=== PATIENT | female | born 1955 | race Caucasian/White ===

== ENCOUNTER 2019-04-21 11:59 | Outpatient (CLI) | payer BC | END 2019-04-21 12:00 | disposition critical access hospital (66) | LOC: EMS 11:59 | PROVIDERS: ATTEND Surgery | DX: S89.91XA Unspecified injury of right lower leg, initial encounter (principal); W11.XXXA Fall on and from ladder, initial encounter; Y92.008 Other place in unspecified non-institutional (private) residence as the place of occurrence of the external cause | CPT/HCPCS: A0425; A0427 ==

== ENCOUNTER 2019-04-21 12:16 | Emergency (ER) | payer BC ==
[2019-04-21] MEDS ORDERED: HYDROmorphone 1 MG/ML CARPUJECT IVP STA ×4 (12:53→16:28)
--- NOTE | 2019-04-21 12:55 | ED Physician Documentation ---
History of Present Illness - Stated complaint Stated Complaint: 5' FALL - Chief complaint Chief Complaint: General - History obtained from History obtained from: Patient - History of Present Illness Timing: Today (She fell about 5 feet off a ladder onto her right leg. No other injuries. She felt like her leg was briefly deformed. No head or neck injury. Pain is severe.) Review of Systems Ten Systems: 10 systems reviewed and negative Constitutional: reports: Reviewed and negative Cardiac: reports: Reviewed and negative Respiratory: reports: Reviewed and negative PD PAST MEDICAL HISTORY - Past Medical History Past Medical History: Yes Cardiovascular: Hypertension, High cholesterol, Coronary artery disease Endocrine/Autoimmune: HyPOthyroidism Other Past Medical History: Arthritis, - Past Surgical History Past Surgical History: Yes General: Appendectomy Ortho: Other /FOXING PAINTER: Hysterectomy, Oophrectomy - Present Medications Home Medications: Ambulatory Orders Medication Instructions Recorded Confirmed Atenolol [Tenormin] 50 04/21/19 Levothyroxine [Synthroid] 125 04/21/19 Losartan [Cozaar] 100 04/21/19 Pravastatin [Pravachol] 80 04/21/19 Verapamil HCl [Verapamil ER] 120 04/21/19 Zolpidem [Ambien] 10 04/21/19 - Allergies Allergies/Adverse Reactions: Allergies Allergy/AdvReac Type Severity Reaction Status Date / Time No Known Drug Allergies Allergy Verified 04/21/19 12:23 - Social History Does the pt smoke?: Yes Smoking Status: Current some day smoker Does the pt drink ETOH?: No Does the pt have substance abuse?: No - Immunizations Immunizations are current?: Yes PD ED PE NORMAL - Vitals Vital signs reviewed: Yes - General General: Alert and oriented X 3, No acute distress - HEENT HEENT: PERRL, EOMI - Neck Neck: Supple, no meningeal sign, No bony TTP - Cardiac Cardiac: RRR, No murmur - Respiratory Respiratory: No respiratory distress, Clear bilaterally - Abdomen Abdomen: Soft, Non tender - Back Back: No CVA TTP, No spinal TTP - Extremities Extremities: Other (There is a suggestion of a deformity at the tibial plateau, cannot range it at all on the right.) - Neuro Neuro: Alert and oriented X 3, Normal speech Results - Vitals Vitals: Vital Signs - 24 hr 04/21/19 04/21/19 04/21/19 12:23 14:05 15:43 Temperature 36.8 C Heart Rate 76 52 L 51 L Respiratory 17 16 14 Rate Blood Pressure 143/93 H 140/84 H 134/95 H O2 Saturation 94 99 97 Oxygen O2 Source Room air - Rads (name of study) Xr R knee Radiology: EMP read contemporaneously (Comminuted impacted lateral tibial plateau fracture) CT R knee Radiology: EMP read contemporaneously (1. Moderately comminuted and severely impacted fracture lateral tibial plateau with vertically oriented split component extending 10 cm distally (Schatzker type II). 2. Fracture extends into the tibial spines with minimally impacted fracture medial tibial plateau. 3. Large lipohemarthrosis. 4. Suggestion of mild edema in the musculature anterior compartment lower leg. 5. Ill-defined 11 cm subcutaneous hematoma over the anterolateral aspect lower leg.) PD MEDICAL DECISION MAKING - ED course ED course: Case discussed by phone with Dr. Garcia, the on-call orthopedic surgeon at approximately 1:45 PM who recommended a CT for better evaluation for potential surgical planning. `After that he felt she would be best served by going to a higher level of care and was accepted by Dr. Fidel Wooten at [facility] at 3:20 PM and cobras were completed. Departure - Departure Disposition: 02 Transfer Acute Care Hosp Clinical Impression: Fracture of right tibial plateau Qualifiers: Encounter type: initial encounter Fracture type: closed Qualified Code(s): S82.141A - Displaced bicondylar fracture of right tibia, initial encounter for closed fracture Condition: Fair
--- NOTE | 2019-04-21 14:27 | XRAY Report ---
Reason: knee/leg inj Procedure Date: 04/21/2019 Accession Number: [id number] / [id number] Procedure: XR - Knee 4 View RT CPT Code: Final Report FULL RESULT: EXAM: RIGHT KNEE RADIOGRAPHY EXAM DATE: 04/21/2019 01:46 PM. CLINICAL HISTORY: Knee/leg inj. COMPARISON: None. TECHNIQUE: 3 views. FINDINGS: Bones: There is an acute displaced lateral wedge/split fracture with compression of right lateral tibial plateau. The wedge/split extends inferiorly into the proximal right tibial diaphysis. Mild cortical irregularity also seen at medial tibial plateau. Findings favor Schatzker type tibial plateau fracture. (Bicondylar with diaphyseal extension). Joints: A small right knee joint effusion noted. No subluxations. Soft Tissues: Normal. No soft tissue swelling. IMPRESSION: Findings favor Schatzker type right tibial plateau fracture. (Bicondylar with diaphyseal extension). RAD[facility]
--- NOTE | 2019-04-21 14:29 | XRAY Report ---
Reason: knee/leg inj Procedure Date: 04/21/2019 Accession Number: [id number] / [id number] Procedure: XR - Tib/Fib RT CPT Code: Final Report FULL RESULT: EXAM: RIGHT TIBIA/FIBULA RADIOGRAPHY EXAM DATE: 04/21/2019 01:45 PM. CLINICAL HISTORY: Knee/leg inj. COMPARISON: None. TECHNIQUE: 2 views. FINDINGS: Bones: There is an acute displaced lateral wedge/split fracture with compression of right lateral tibial plateau. The wedge/split extends inferiorly into the proximal right tibial diaphysis. Cortical irregularity/fracture at medial tibial plateau as well. Soft Tissues: Normal. No soft tissue swelling. IMPRESSION: An acute displaced lateral wedge/split fracture with compression of right lateral tibial plateau. The wedge/split extends inferiorly into the proximal right tibial diaphysis. ( Described in detail on the radiograph). Findings most consistent with a Schatzker type right tibial fracture. RADIA
--- NOTE | 2019-04-21 15:36 | CT Report ---
Reason: tibial plateu frx Procedure Date: 04/21/2019 Accession Number: [id number] / [id number] Procedure: CT - LOWER EXTREMITY WO - RT CPT Code: Final Report FULL RESULT: EXAM: RIGHT KNEE CT WITHOUT CONTRAST EXAM DATE: 04/21/2019 02:30 PM. CLINICAL HISTORY: Tibial plateau fracture. COMPARISON: Radiographs 04/21/2019. TECHNIQUE: Thin-section axial images were acquired of the knee without contrast. Post-processing: Coronal and sagittal reformats. Other: None. In accordance with CT protocol optimization, one or more of the following dose reduction techniques were utilized for this exam: automated exposure control, adjustment of mA and/or KV based on patient size, or use of iterative reconstructive technique. FINDINGS: Bones: Moderately comminuted and severely impacted fracture lateral tibial plateau. 3 x 2 cm central ossific fragment impacted up to 1.5 cm. Fracture extends into the lateral and medial tibial spines as well as into the proximal tibiofibular joint. Vertically oriented split component extends into the anterior cortex of the metaphysis and posterior medial cortex of the tibial diaphysis, 10 cm from the joint. Minimally impacted fracture extends into the central and anterior aspect medial tibial plateau. Offset at the articular surface measures up to 0.3 cm centrally. No other discrete displaced fracture visualized. Evaluation for nondisplaced fracture limited on CT. Joints: Mild tricompartmental degenerative changes. Large joint effusion with fat fluid level. Musculature: No focal fatty atrophy. Limited evaluation of muscle edema on CT. Suggestion of edema in the anterior compartment lower leg. Other: Moderate to severe subcutaneous edema with ill-defined high attenuation blood products/hematoma over the anterolateral aspect lower leg extending 11 cm cranial caudal. IMPRESSION: 1. Moderately comminuted and severely impacted fracture lateral tibial plateau with vertically oriented split component extending 10 cm distally (Schatzker type II). 2. Fracture extends into the tibial spines with minimally impacted fracture medial tibial plateau. 3. Large lipohemarthrosis. 4. Suggestion of mild edema in the musculature anterior compartment lower leg. 5. Ill-defined 11 cm subcutaneous hematoma over the anterolateral aspect lower leg. RADIA
[2019-04-21 17:04] VITALS: BP 130/94
== END 2019-04-21 17:28 | disposition short-term general hospital (02) ==
LOC: ED 12:16
DX: S82.141A Displaced bicondylar fracture of right tibia, initial encounter for closed fracture (principal); W11.XXXA Fall on and from ladder, initial encounter; I10 Essential (primary) hypertension; F17.200 Nicotine dependence, unspecified, uncomplicated
CPT/HCPCS: 51702; 73564; 73590; 73700; 96374; 96376; 99285; J1170

== ENCOUNTER 2019-04-21 17:25 | Outpatient (CLI) | payer BC | END 2019-04-21 17:26 | disposition short-term general hospital (02) | LOC: EMS 17:25 | PROVIDERS: ATTEND Surgery | DX: S82.141A Displaced bicondylar fracture of right tibia, initial encounter for closed fracture (principal); W11.XXXA Fall on and from ladder, initial encounter | CPT/HCPCS: A0425; A0427 ==

== ENCOUNTER 2022-09-15 12:45 | Outpatient (CLI) | payer BC ==
--- NOTE | 2022-09-15 15:16 | XRAY Report ---
PROCEDURE: Knee 2 View LT INDICATIONS: KNEE PAIN LEFT TECHNIQUE: 2 views of the left knee(s) were acquired. COMPARISON: None. FINDINGS: Bones: No fractures or dislocations. No suspicious bony lesions. Definite osteophytes and possibl e narrowing of joint space. These changes affect the medial tibiofemoral compartment. Soft tissues: No knee joint effusion. No suspicious soft tissue calcifications or masses. IMPRESSION: 1. No acute fractures. 2. Mild medial compartment osteoarthritic change. Reviewed by: Bhumi Steele MD on 09/15/2022 3:14 PM PDT Approved by: Bhumi Steele MD on 09/15/2022 3:14 PM PDT Station ID: [id number]
== END 2022-09-15 13:00 | disposition home or self-care (01) ==
LOC: DI.N 12:45
PROVIDERS: ATTEND Family Medicine
DX: M17.12 Unilateral primary osteoarthritis, left knee (principal)

== ENCOUNTER 2022-10-18 06:15 | Outpatient (CLI) | payer BC ==
--- NOTE | 2022-10-18 16:44 | XRAY Report ---
PROCEDURE: Knee 4 View LT INDICATIONS: LEFT KNEE PAIN TECHNIQUE: 4 views of the left knee(s) were acquired. COMPARISON: None. FINDINGS: Bones: No fractures or dislocations. No suspicious bony lesions. ORIF of the proximal right tibia . Mild periarticular osteophyte formation at the bilateral knee joints. Soft tissues: No knee joint effusion. No suspicious soft tissue calcifications or masses. IMPRESSION: 1. No acute fracture. No osseous lesion. If symptoms and/or clinical suspicion for pathology continue , further assessment with repeat plain films, or advanced imaging (e.g., CT, MRI, or bone scan) is re commended for further assessment.. 2. Postsurgical sequelae. 3. Osteoarthritis. Reviewed by: Mason Keane MD on 10/18/2022 4:43 PM PDT Approved by: Mason Keane MD on 10/18/2022 4:43 PM PDT Station ID: [id number]
== END 2022-10-18 23:59 | disposition home or self-care (01) ==
LOC: DI.WOS 06:15
PROVIDERS: ATTEND Physician Assistant Surgical
DX: M17.12 Unilateral primary osteoarthritis, left knee (principal)